=== PATIENT | male | born 1960 | race American Indian/Alaskan Native ===

== ENCOUNTER 2021-06-09 20:59 | Emergency (ER) | payer OTHER ==
[2021-06-09 21:19] VITALS: BP 145/96
[2021-06-09 21:37] LABS: Basophils # (Auto) 0.1 K/mm3 (0.0-0.1); Basophils % (Auto) 0.5 % (0.0-1.8); Eosinophils % (Auto) 0.2 % (0.0-4.3); Hematocrit 40.2 % (35.5-45.6); Hemoglobin 13.5 gm/dl (11.8-15.2); Lymphocytes # (Auto) 0.7 K/mm3 (1.2-5.4); Lymphocytes % (Auto) 5.8 % (13.4-35.0); Mean Corpuscular HGB Conc 34 % (32-34); Mean Corpuscular Volume 87 fl (84-94); Monocytes # (Auto) 0.8 K/mm3 (0.0-0.8); Monocytes % (Auto) 6.5 % (0.0-7.3); Platelet Count 258 K/mm3 (140-440)
[2021-06-09] MEDS ORDERED: MORPHINE 4 MG/1 ML INJ IV ONE (21:53)
[2021-06-09] MEDS ORDERED: ONDANSETRON 4 MG/2 ML INJ IV ONE (21:53)
[2021-06-09] MEDS ORDERED: SODIUM CHLORIDE 0.9% 1000 ML 1,000 ML IV ONE (21:53)
--- NOTE | 2021-06-09 21:57 | Emergency Department Report ---
ED Abdominal Pain HPI - General Chief Complaint: Abdominal Pain Stated Complaint: VOMITING/FEVER ABD PAIN Time Seen by Provider: 06/09/21 21:31 Source: patient Mode of arrival: Ambulatory Limitations: No Limitations - History of Present Illness Initial Comments: 60-year-old male presents to the ER today with complaints of severe lower abdominal pain. He states that pain started after eating lunch around 1:30 PM. He states that the pain has been constant and radiates around into his lower back. He reports nausea and has vomited twice today. He reports subjective fever and a headache and abdominal distension. He states that he had a bowel movement today was normal. He denies any UTI symptoms. He denies similar symptoms in the past. He denies any history of abdominal surgeries. He states that he drinks alcohol occasionally. He denies any illicit drug use. MD Complaint: abdominal pain -: This afternoon - Related Data Previous Rx's Medication Instructions Recorded Last Taken Type HYDROcodone/APAP 5-325 [Lindon 1 each PO Q4HR PRN #12 tablet 06/09/21 Unknown Rx 5/325] Ketorolac [Toradol] 10 mg PO Q6H PRN #20 tablet 06/09/21 Unknown Rx Ondansetron [Zofran Odt] 4 mg PO Q8HR PRN #15 tab.rapdis 06/09/21 Unknown Rx Tamsulosin [Flomax] 0.4 mg PO QDAY #5 cap 06/09/21 Unknown Rx Allergies Allergy/AdvReac Type Severity Reaction Status Date / Time No Known Allergies Allergy Unverified 06/09/21 21:19 ED Review of Systems ROS: Stated complaint: VOMITING/FEVER ABD PAIN Other details as noted in HPI Comment: All other systems reviewed and negative Constitutional: denies: chills, fever Eyes: denies: eye pain, eye discharge, vision change ENT: denies: ear pain, throat pain Respiratory: denies: cough, shortness of breath, SOB with exertion, SOB at rest, wheezing Cardiovascular: denies: chest pain, palpitations, dyspnea on exertion, edema, syncope, paroxysmal nocturnal dyspnea Gastrointestinal: abdominal pain, nausea, vomiting. denies: diarrhea, constipation, hematemesis, melena, hematochezia Genitourinary: denies: urgency, dysuria, discharge, testicular pain, testicular mass Musculoskeletal: denies: back pain, joint swelling, arthralgia Skin: denies: rash, lesions, change in color, change in hair/nails, pruritus Neurological: denies: headache, weakness, numbness, paresthesias, confusion, abnormal gait, vertigo Psychiatric: denies: anxiety, depression, auditory hallucinations, visual hallucinations, homicidal thoughts, suicidal thoughts Hematological/Lymphatic: denies: easy bleeding, easy bruising ED Past Medical Hx - Past Medical History Previous Medical History?: Yes Hx HIV: Yes - Surgical History Past Surgical History?: No - Medications Home Medications: Home Medications Medication Instructions Recorded Confirmed Last Taken Type HYDROcodone/APAP 5-325 [Lindon 1 each PO Q4HR PRN #12 tablet 06/09/21 Unknown Rx 5/325] Ketorolac [Toradol] 10 mg PO Q6H PRN #20 tablet 06/09/21 Unknown Rx Ondansetron [Zofran Odt] 4 mg PO Q8HR PRN #15 tab.rapdis 06/09/21 Unknown Rx Tamsulosin [Flomax] 0.4 mg PO QDAY #5 cap 06/09/21 Unknown Rx ED Physical Exam - General Limitations: No Limitations General appearance: alert, in distress (patient appears uncomfortable and in distress) - Head Head exam: Present: atraumatic, normocephalic, normal inspection - Eye Eye exam: Present: normal appearance, PERRL, EOMI Pupils: Present: normal accommodation - ENT ENT exam: Present: normal exam, mucous membranes moist, TM's normal bilaterally - Neck Neck exam: Present: normal inspection, full ROM. Absent: meningismus - Respiratory Respiratory exam: Present: normal lung sounds bilaterally. Absent: respiratory distress, wheezes, rales, rhonchi, stridor - Cardiovascular Cardiovascular Exam: Present: regular rate, normal rhythm, normal heart sounds - GI/Abdominal GI/Abdominal exam: Present: soft, distended (mild ), tenderness (TTP diffuse lower abdomen), guarding. Absent: rebound - Back Exam Back exam: Present: normal inspection, full ROM, CVA tenderness (R), CVA tenderness (L) - Neurological Exam Neurological exam: Present: alert, oriented X3, CN II-XII intact, normal gait - Psychiatric Psychiatric exam: Present: normal affect, normal mood - Skin Skin exam: Present: intact ED Course Vital Signs 06/09/21 06/09/21 21:16 22:11 Temperature 98.5 F Pulse Rate 109 H Respiratory 20 16 Rate Blood Pressure 145/96 [Left] O2 Sat by Pulse 96 Oximetry ED Medical Decision Making - Lab Data Result diagrams: 06/09/21 21:25 06/09/21 21:25 - Radiology Data Radiology results: report reviewed Patient: DUARTE SHERIDAN MR#: [id number] : 1960 Acct:[id number] Age/Sex: 60 / M ADM Date: 06/09/21 Loc: ED Attending Dr: Ordering Physician: JASSON TOLEDO Date of Service: 06/09/21 Procedure(s): CT abdomen pelvis w con Accession Number(s): [id number] cc: JASSON TOLEDO CT ABDOMEN AND PELVIS WITH IV CONTRAST INDICATION: Severe lower abd pain with nausea and vomiting. COMPARISON: None available. TECHNIQUE: All CT scans at this facility use dose modulation, automated exposure control, iterative reconstruction or weight based dosing, when appropriate, to reduce radiation dose to as low as reasonably achievable. FINDINGS: Lung Bases: No significant abnormality. Skeletal System: No acute abnormality. ABDOMEN: Liver: Within the anterior liver there is a 1.4 cm subtle ill-defined hypodense lesion on axial image 47. This is nonspecific. Liver is otherwise unremarkable. Gallbladder: No significant abnormality. Bile Ducts: No significant abnormality. Adrenals: No significant abnormality. Right Kidney: No significant abnormality. Left Kidney: There is moderate left hydroureteronephrosis. Mild left perinephric stranding. Small cysts are noted. There are few punctate nonobstructing calyceal stones. Pancreas: No significant abnormality. Spleen: No significant abnormality. Upper GI tract: No significant abnormality. Lymph Nodes: No significant adenopathy. Aorta: No significant abnormality. Additional Findings: Small fat-containing umbilical hernia. PELVIS: Colon: No acute abnormality. Diverticulosis is noted. Urinary Bladder and Distal Ureters: There is a 2-3 mm distal left ureteral stone. Bladder is unremarkable. Appendix: No significant abnormality. Lymph Nodes: No significant adenopathy. Additional Findings: None. IMPRESSION: 1. Obstructing 2-to 3 mm distal left ureteral stone with moderate left hydro nephrosis. 2. 1.4 cm subtle hypodensity in the anterior liver. Differential considerations include focal fat deposition or intrinsic lesion. In the absence of priors showing stability over time, follow-up is recommended. 3. Additional incidental findings as above. Signer Name: Krystian Tineo MD Signed: 06/09/2021 10:41 PM Workstation Name: [id number] Transcribed By: ISSA Dictated By: Krystian Tineo MD Electronically Authenticated By: Krystian Tineo MD Signed Date/Time: 06/09/212240 DD/ 34 TD/TT: - Medical Decision Making 2340: Patient reports that his pain is much better after IV morphine and toradol. His nausea has also improved after the Zofran. He has not had any vomiting during stay. Patient appears to be resting more comfortably currently not in any acute distress. He is not toxic or ill-appearing. He is ne urologically intact. All labs reviewed -- CBC and CMP unremarkable. UA shows wbc of 8.0, but no nitrates or leukocytes, no bacteria. CT abdomen and pelvis shows 1. Obstructing 2-to 3 mm distal left ureteral stone with moderate left hydronephrosis. 2. 1.4 cm subtle hypodensity in the anterior liver. Differential considerations include focal fat deposition or intrinsic lesion. In the absence of priors showing stability over time, follow-up is recommended. Discussed all results with patient. Given that patient pain is now controlled, he has not had any more nausea or vomiting, his renal functions are normal hemodynamically stable, patient will be discharged home. Patient will be discharged home with prescription for Flonase, pain meds as well as antiemetics and he will be given referral to local urologist. Discussed worsening signs and symptoms with patient, he understands that if his symptoms worsens in any way to return to the ER. Patient expressed understanding of all instructions and agree with plan. Patient stable at time of discharge Critical care attestation.: If time is entered above; I have spent that time in minutes in the direct care of this critically ill patient, excluding procedure time. ED Disposition Clinical Impression: Kidney stone on left side Disposition: HOME / SELF CARE / HOMELESS Is pt being admited?: No Does the pt Need Aspirin: No Condition: Stable Instructions: Kidney Stones Additional Instructions: I recommend that you take the Flomax as prescribed, also take the Toradol and the hydrocodone as prescribed for pain and the Zofran as prescribed for nausea and vomiting. Continue to drink lots of fluids especially water. Follow-up with your PCP but also recommend following up with the urologist listed on your discharge instructions. Return to the ER if at any point your pain worsens in any way. Prescriptions: Tamsulosin [Flomax] 0.4 mg PO QDAY #5 cap HYDROcodone/APAP 5-325 [Lindon 5/325] 1 each PO Q4HR PRN #12 tablet PRN Reason: Pain Ketorolac [Toradol] 10 mg PO Q6H PRN #20 tablet PRN Reason: Pain Ondansetron [Zofran Odt] 4 mg PO Q8HR PRN #15 tab.rapdis PRN Reason: nausea/vomiting Referrals: SATISH THOMAS MD [Staff Physician] - 3-5 Days LIANE PANIAGUA MD [Staff Physician] - 3-5 Days Time of Disposition: 23:58
[2021-06-09 22:04] LABS: BUN/Creatinine Ratio 9; Blood Urea Nitrogen 12 mg/dL (9-20); Calcium 9.3 mg/dL (8.4-10.2); Hemolysis Index 6
[2021-06-09 22:23] LABS: Alanine Aminotransferase 26 units/L (7-56); Albumin 4.9 g/dL (3.9-5)
[2021-06-09 22:24] LABS: Bilirubin,Direct < 0.2 mg/dL (0-0.2)
--- NOTE | 2021-06-09 22:45 | Cat Scan Report ---
CT ABDOMEN AND PELVIS WITH IV CONTRAST INDICATION: Severe lower abd pain with nausea and vomiting. COMPARISON: None available. TECHNIQUE: All CT scans at this facility use dose modulation, automated exposure control, iterative reconstructi on or weight based dosing, when appropriate, to reduce radiation dose to as low as reasonably achieva ble. FINDINGS: Lung Bases: No significant abnormality. Skeletal System: No acute abnormality. ABDOMEN: Liver: Within the anterior liver there is a 1.4 cm subtle ill-defined hypodense lesion on axial image 47. This is nonspecific. Liver is otherwise unremarkable. Gallbladder: No significant abnormality. Bile Ducts: No significant abnormality. Adrenals: No significant abnormality. Right Kidney: No significant abnormality. Left Kidney: There is moderate left hydroureteronephrosis. Mild left perinephric stranding. Small cys ts are noted. There are few punctate nonobstructing calyceal stones. Pancreas: No significant abnormality. Spleen: No significant abnormality. Upper GI tract: No significant abnormality. Lymph Nodes: No significant adenopathy. Aorta: No significant abnormality. Additional Findings: Small fat-containing umbilical hernia. PELVIS: Colon: No acute abnormality. Diverticulosis is noted. Urinary Bladder and Distal Ureters: There is a 2-3 mm distal left ureteral stone. Bladder is unremark able. Appendix: No significant abnormality. Lymph Nodes: No significant adenopathy. Additional Findings: None. IMPRESSION: 1. Obstructing 2-to 3 mm distal left ureteral stone with moderate left hydronephrosis. 2. 1.4 cm subtle hypodensity in the anterior liver. Differential considerations include focal fat de position or intrinsic lesion. In the absence of priors showing stability over time, follow-up is erickson mmended. 3. Additional incidental findings as above. Signer Name: Krystian Tineo MD Signed: 06/09/2021 10:41 PM Workstation Name: [id number]
[2021-06-09] MEDS ORDERED: KETOROLAC 30 MG/1 ML INJ IV ONE (23:08)
[2021-06-09 23:24] LABS: Bilirubin,Urine NEG (Negative); Blood,Urine LG (Negative); Color,Urine Yellow (Yellow); Mucus,Urine FEW /HPF; Urobilinogen,Urine < 2.0 mg/dL (<2.0)
[2021-06-10] MEDS ORDERED: TAMSULOSIN 0.4 MG CAP PO ONE (00:01)
== END 2021-06-10 00:43 | disposition home or self-care (01) ==
LOC: ED 20:59
DX: N20.0 Calculus of kidney (principal)
CPT/HCPCS: 36415; 74177; 80048; 80076; 81001; 82150; 83690; 85025; 96361; 96374; 96375; 96376; 99284; J1885; J2270; J2405; J7030; Q9967